=== PATIENT | female | born 1940 | race Caucasian/White ===

== ENCOUNTER 2017-12-11 06:20 | Day surgery (SDC) | payer OTHER ==
[~2017-12-11] VITALS: Ht 154.9 cm; Wt 99.3 kg
[~2017-12-11 06:20] MED LIST: ALTACE10 MG PO; ASPIR-LOW81 MG PO; HYDROCODON-ACE1 EAC7 PO; LITE COAT ASPI325 M1 PO; LUMIGAN 0.50 DROP/22 BOTH EYES; PLAVIX75 MG PO; RAMIPRIL10 MG PO; SIMVASTATIN10 MG PO; XALATAN2.5 ML BOTH EYES
[2017-12-11 07:20] VITALS: BP 171/73
[2017-12-11 09:40] VITALS: BP 146/89
[2017-12-11 10:19] VITALS: BP 178/67
== END 2017-12-11 10:20 | disposition home or self-care (01) ==
LOC: SDC 06:20
DX: C54.1 Malignant neoplasm of endometrium (principal); Z92.3 Personal history of irradiation; I10 Essential (primary) hypertension; E78.5 Hyperlipidemia, unspecified; Z86.73 Personal history of transient ischemic attack (TIA), and cerebral infarction without residual deficits; Z79.82 Long term (current) use of aspirin
CPT/HCPCS: 88305; J0690; J1100; J2250; J2405; J3010